=== PATIENT | male | born 1975 | race Caucasian/White ===

== ENCOUNTER 2019-03-03 11:27 | Emergency (ER) | payer OTHER ==
[2019-03-03] MEDS ORDERED: FLUORESCEIN NA 1 EA STRIP OD ONE (11:29)
[2019-03-03] MEDS ORDERED: TETRACAINE 0.5% HCL 0.6ML DROPPER.BOTTLE OD ONE (11:29)
[2019-03-03] MEDS ORDERED: FLUORESCEIN NA 1 EA STRIP ONE (11:35)
[2019-03-03] MEDS ORDERED: TETRACAINE 0.5% OPHTH SOLN 2 ML BOTTLE ONE (11:35)
[2019-03-03 11:39] VITALS: BP 141/89; PULSE 87; TEMP 97.8; BMI 29.4
--- NOTE | 2019-03-03 11:57 | PDOC ---
History of Present Illness - General Chief Complaint: Eye Problem Stated Complaint: RT EYE PROBLEM Time Seen by Provider: 03/03/19 11:29 History Source: Patient Exam Limitations: No Limitations - History of Present Illness Initial Comments: 03/03/19 12:35 43 year old male with no pmh p/w Right eye crusting and blood around eyelids. Yesterday was in his usual state of health with no problems. Woke up this morning, with dried blood and crusting around his right eye. No changes in visual acuity. Normally does not wear contact lenses or glasses. States that when he wiped his right eye, he noted some blood on the tissue. Denies eye pain. No fevers, chills. Past History - Past Medical History Allergies/Adverse Reactions: Allergies Allergy/AdvReac Type Severity Reaction Status Date / Time No Known Allergies Allergy Verified 03/03/19 11:28 Home Medications: Ambulatory Orders Peg 400/Hypromellose/Glycerin [Artificial Tears Drops] 1 drop OP Q3H PRN #1 drops 03/03/19 COPD: No Other medical history: pt denies - Suicide/Smoking/Psychosocial Hx Smoking Status: No Smoking History: Never smoked Have you smoked in the past 12 months: No Number of Cigarettes Smoked Daily: 0 Information on smoking cessation initiated: No Hx Alcohol Use: No Review of Systems - Review of Systems Able to Perform ROS?: Yes Comments:: 03/03/19 12:49 GENERAL/CONSTITUTIONAL: [No fever or chills. No weakness. No weight change.] HEAD, EYES, EARS, NOSE AND THROAT: [No change in vision. No ear pain or discharge. No sore throat.] + lower eyelid cyst CARDIOVASCULAR: [No chest pain or shortness of breath.] RESPIRATORY: [No cough, wheezing, or hemoptysis.] GASTROINTESTINAL: [No nausea, vomiting, diarrhea or constipation. No rectal bleeding.] GENITOURINARY: [No dysuria, frequency, or change in urination.] MUSCULOSKELETAL: [No joint or muscle swelling or pain. No neck or back pain.] SKIN AND BREASTS: [No rash or easy bruising.] NEUROLOGIC: [No headache, vertigo, loss of consciousness, or loss of sensation.] PSYCHIATRIC: [No depression or anxiety.] ENDOCRINE: [No increased thirst. No abnormal weight change.] HEMATOLOGIC/LYMPHATIC: [No anemia, easy bleeding, or history of blood clots.] ALLERGIC/IMMUNOLOGIC: [No hives or skin allergy. No latex allergy.] *Physical Exam - Vital Signs Last Vital Signs Temp Pulse Resp BP Pulse Ox 97.8 F 87 18 141/89 100 03/03/19 11:27 03/03/19 11:27 03/03/19 11:27 03/03/19 11:27 03/03/19 11:27 - Physical Exam Comments: 03/03/19 12:49 GENERAL: Awake, alert, and fully oriented, in no acute distress HEAD: No signs of trauma EYES: PERRLA, EOMI, sclera anicteric, conjunctiva clear. OS: 20/30 OD: 20/40 No discharge, bleeding, or drainage. OD: 2 small hemorrhagic conjunctival epithelial cyst inferior. ENT: Auricles normal inspection, hearing grossly normal, nares patent, NECK: Normal ROM, supple, EXTREMITIES: Normal range of motion, no edema. No clubbing or cyanosis. No cords, erythema, or tenderness NEUROLOGICAL: Cranial nerves II through XII grossly intact. Normal speech, normal gait SKIN: Warm, Dry, normal turgor, no rashes or lesions noted. ED Treatment Course - Medications Given in the ED: ED Medications Discontinued Medications Generic Name Dose Route Start Last Admin Trade Name Freq PRN Reason Stop Dose Admin Fluorescein Sodium 1 ea 03/03/19 11:29 03/03/19 11:50 Fluorets - OD 03/03/19 11:30 1 ea ONCE ONE Administration Tetracaine HCl 1 drop 03/03/19 11:29 03/03/19 11:50 Tetravisc 0.5% Eye Drops - OD 03/03/19 11:30 1 drop ONCE ONE Administration Medical Decision Making - Medical Decision Making 03/03/19 12:50 Vital Signs Temp Pulse Resp BP Pulse Ox 97.8 F 87 18 141/89 100 03/03/19 11:27 03/03/19 11:27 03/03/19 11:27 03/03/19 11:27 03/03/19 11:27 I have discussed the case with opthamologist Dr. Kennedy Felix. Dr. Felix had stated that this is a hemorrhage into a conjunctival epithelial cyst and not life threatening. Recommended artificial tears and follow up in his office this week. Pt feels reassurred and will follow up with the eye doctor. I discussed the physical exam findings, ancillary test results and final diagnoses with the patient. I answered all of the patient's questions. The patient was satisfied with the care received and felt comfortable with the discharge plan and treatment plan. The patient will call their primary care physician within 24 hours to arrange follow-up and will return to the Emergency Department with any new, persistant or worsening symptoms. *DC/Admit/Observation/Transfer Diagnosis at time of Disposition: Cyst, eyelid Qualifiers: Laterality: right Eyelid: lower Qualified Code(s): H02.822 - Cysts of right lower eyelid - Discharge Dispostion Disposition: HOME Condition at time of disposition: Stable Decision to Admit order: No - Prescriptions Prescriptions: Peg 400/Hypromellose/Glycerin [Artificial Tears Drops] 1 drop OP Q3H PRN #1 drops PRN Reason: Dry Eyes - Referrals Referrals: Kennedy Felix MD [Staff Physician] - - Patient Instructions Additional Instructions: You have a "hemorrhage into a conjunctival epithelial cyst". I have spoken with the eye doctor, Dr. Felix, who requests that you follow up in his office this week. This condition is not life threatening, but should be treated with the eye doctor. Please call tomorrow morning to schedule an appointment. In the meantime, please use the lubricant eyedrops to help with the dryness. - Post Discharge Activity
== END 2019-03-03 13:00 | disposition home or self-care (01) ==
LOC: FER 11:27
DX: H02.822 Cysts of right lower eyelid (principal)
CPT/HCPCS: 99282-25